=== PATIENT | male | born 1945 | race Caucasian/White ===

== ENCOUNTER 2016-12-06 09:16 | Inpatient (IN) | payer OTHER ==
[2016-11-12 15:24] VITALS: BMI 28.0
--- NOTE | 2016-11-12 16:06 | PAT Medication Instructions ---
Service Date Nov 12, 2016. Current Home Medication List Aspirin (Aspir-81), 1 TAB PO QAM Atorvastatin (Lipitor), 20 MG PO QAM Ibuprofen (Motrin), 800 MG PO QAM PRN for Pain Lisinopril/Hctz (Zestoretic 20MG/25MG), 1 TAB PO QAM Metoprolol Tartrate (Lopressor) (Lopressor), 50 MG PO HS Oxybutynin Chloride (Oxybutynin Chloride Er), 1 TAB PO HS Tamsulosin HCl (Tamsulosin HCl), 1 TAB PO HS [Oxybutynin] Medication Instructions For Your Scheduled Surgery Ibuprofen (Motrin), 800 MG PO QAM PRN for Pain (patient will check with surgeon for instructions) - Hold the following medications the morning of surgery: Lisinopril/Hctz (Zestoretic 20MG/25MG), 1 TAB PO QAM - Take the following medications the morning of surgery with a sip of water: Aspirin (Aspir-81), 1 TAB PO QAM - Take the following medications as scheduled the night before surgery: Oxybutynin Chloride (Oxybutynin Chloride Er), 1 TAB PO HS Tamsulosin HCl (Tamsulosin HCl), 1 TAB PO HS Metoprolol Tartrate (Lopressor) (Lopressor), 50 MG PO HS Atorvastatin (Lipitor), 20 MG PO QPM If you have any questions please call us at [phone] or [phone] ( [place]) or [phone]
[2016-11-12 16:26] LABS: URINE APPEARANCE CLEAR (CLEAR); URINE BILIRUBIN NEG (NEG); URINE COLOR YELLOW; URINE NITRITE NEG (NEG); URINE PH 7.5 (4.5-7.5); URINE SPECIFIC GRAVITY 1.008 (1.000-1.030); UROBILINOGEN NEG (NEG)
[2016-11-12 16:29] LABS: MANUAL MICROSCOPIC REQUIRED? NO; REVIEW REQ? NO
[2016-11-12 16:35] LABS: PROTHROMBIN TIME (PATIENT) 11.1 SECONDS (9.0-12.0)
[2016-11-12 16:38] LABS: BASO % 0.5 %; BASO ABS # 0.03 K/uL (0-0.2); COMPLETE YES; EOS % 3.5 %; HEMATOCRIT 38.5 % (42-52); IG% 0.2 %; LYMPH % 30.1 %; LYMPH ABS # 1.98 K/uL (1.2-3.4); MEAN CELL VOLUME 95.1 fL (80-100); MEAN CORPUSCULAR HEMOGLOBIN 33.8 pg (25-34); MEAN CORPUSCULAR HGB CONC 35.6 g/dl (32-36); MEAN PLATELET VOLUME 9.4 fL (7.4-10.4); MONO % 10.2 %; NEUT % 55.5 %; PLATELET COUNT 180 K/uL (130-400); RED BLOOD COUNT 4.05 M/uL (4.7-6.1); WHITE BLOOD COUNT 6.58 K/uL (4.8-10.8)
[2016-11-12 16:57] LABS: BUN/CREATININE RATIO 16.1 (10-20); CALCIUM 8.6 mg/dl (8.5-10.1); CREATININE 1.2 mg/dl (0.60-1.40); POTASSIUM 3.6 mmol/L (3.5-5.1)
--- NOTE | 2016-11-12 18:54 | DIAGNOSTIC IMAGING REPORT ---
CHEST PREADMISSION(PA/LAT) CLINICAL HISTORY: Preoperative chest COMPARISON STUDY: No previous studies for comparison. FINDINGS: The cardiac and mediastinal contours are normal. There is no evidence of focal pulmonary consolidation. There is no evidence of failure. No pleural effusions are visualized.[ IMPRESSION: No active disease in the chest. Electronically signed by: Waldemar Spence M.D. 11/12/2016 6:53 PM Dictated Date/Time: 11/12/2016 6:52 PM
[2016-11-13 10:05] LABS: ESTIMATED AVERAGE GLUCOSE 105 mg/dl; HA1C FLAG Normal (Normal)
--- NOTE | 2016-12-05 13:14 | HISTORY & PHYSICAL EXAMINATION ---
DATE OF ADMISSION: 12/06/2016 CHIEF COMPLAINT: Left hip pain. HISTORY OF PRESENT ILLNESS: The patient is a 71-year-old gentleman seen and evaluated for left hip pain with advanced osteoarthritis, previous corticosteroid injections as well as anti-inflammatory medications. Does have ongoing pain and disability and now desires left total hip arthroplasty. PAST MEDICAL HISTORY: Coronary artery disease, hypertension, hypercholesterolemia. PAST SURGICAL HISTORY: Orchiectomy, colonoscopy. MEDICATIONS: Aspirin 81 mg daily, atorvastatin 20 mg at bedtime, metoprolol tartrate 50 mg twice daily, tamsulosin 0.4 mg daily, lisinopril/HCTZ 20-25 daily, ibuprofen 800 mg p.r.n., oxybutynin chloride ER 5 mg daily. ALLERGIES: No known drug allergies. SOCIAL HISTORY: He states weekly alcohol use. REVIEW OF SYSTEMS: Noncontributory. PHYSICAL EXAMINATION: GENERAL: Well-nourished, well-developed elderly male who appears his stated age. HEAD, EYES, EARS, NOSE, AND THROAT: Normocephalic, atraumatic, extraocular movements intact, oropharynx pink and moist. NECK: Supple without adenopathy. LUNGS: Clear to auscultation bilaterally. HEART: Regular rate and rhythm. ABDOMEN: Soft, nontender, nondistended. EXTREMITIES: The upper extremity within normal limits. Left hip demonstrates limited range of motion. There is limitation of active and passive internal/external rotation with pain. X-RAYS: X-rays were reviewed. He has severe osteoarthritis about the left hip with complete loss of the joint space. There are large osteophytes about the acetabulum and femoral head. ASSESSMENT: Left hip degenerative joint disease. PLAN: Risks versus benefits were discussed. Consent was obtained. The patient's primary care physician is Dr. Brumfield. His manager club is [facility]. Will proceed with left total hip arthroplasty upon preop workup and medical clearance.
[2016-12-06] VITALS (8 sets, daily range): BP systolic 115–138; BP diastolic 66–81; PULSE 66–87; TEMP 36.3–36.7; O2SAT 96–99; Ht 170.2 cm; Wt 81.5 kg
[~2016-12-06] VITALS: Ht 170.2 cm; Wt 81.5 kg
[~2016-12-06 09:16] MED LIST: ACETAMINOPHEN 500 MG TAB PO SCH; ASPI-232 PO; ATOR-22 PO; BUPIVACAINE 0.5 % 5 MG/1 ML PF 10ML VIAL ONE; CEFAZOLIN 2000 MG/60 ML D5W 60 ML IV SCH; CeleBREX 200 MG CAP PO SCH; DEXAMETHASONE 4 MG TAB PO SCH; FAMOTIDINE 20 MG TAB PO SCH; FLM4 PO; GABAPENTIN 300 MG CAP PO SCH; IBUP-1428 PO; LACTATED RINGER'S 1000ML 1,000 ML IV SCH; LACTATED RINGER'S 1000ML IV SCH; LACTATED RINGER'S 500 ML IV SCH; LISI-788 PO; METO50TA16 PO; METOCLOPRAMIDE HCL 10 MG TAB PO SCH; OXYB5TAB PO; OXYBUTYNIN; ROPIVACAINE 5MG/ML 30 ML 150 MG, BUPIVACAINE/EPINEPHR 0.5% MPF 30 ML, KETOROLAC TROMETH... INFIL SCH; TRANEXAMIC ACID INJ 1,000 MG in SODIUM CHLORIDE 0.9% 100ML 100 ML IV SCH
[2016-12-06] MEDS ORDERED: MIDAZOLAM HCL 1 MG/ML 2ML VIAL ONE (09:32)
[2016-12-06] MEDS ORDERED: PROPOFOL IV EMULSION 10 MG/ML 20 ML VIAL IV ONE ×2 (09:32→11:50)
[2016-12-06] MEDS ORDERED: FENTANYL CITRATE INJ 50 MCG/1 ML 2 ML VIAL ONE (09:33)
--- NOTE | 2016-12-06 10:28 | History & Physical Bridge Note ---
H&P Re-Evaluation Bridge Note: I have examined the patient, reviewed the History & Physical and in the interval since the performance of the History & Physical I have noted the following changes of clinical significance: No changes noted
[2016-12-06] MEDS ORDERED: HYDROmorphone INJ 2 MG/ML SYR/VIAL IV PRN (10:45)
[2016-12-06] MEDS ORDERED: ONDANSETRON INJ 2 MG/ML 2 ML VIAL IV PRN ×2 (10:45→12:45)
[2016-12-06] MEDS ORDERED: ATROPINE SULFATE 0.1 MG/ML 5ML SYR IV PRN (10:45)
[2016-12-06] MEDS ORDERED: PHENYLEPHRINE 100MCG/ML 5ML SYR IV PRN (10:45)
[2016-12-06] MEDS ORDERED: EpHEDrine SULFATE INJ 50 MG/ML AMP IV PRN (10:45)
[2016-12-06] MEDS ORDERED: POVIDONE-IODINE OP SOLN 30 ML BTL ONE (10:56)
[2016-12-06] MEDS ORDERED: BACITRACIN 50000 UNIT VIAL ONE (10:57)
[2016-12-06] MEDS ORDERED: ONDANSETRON INJ 2 MG/ML 2 ML VIAL ONE (11:27)
[2016-12-06] MEDS ORDERED: EpHEDrine SULFATE 50MG/5ML SYR ONE (11:46)
[2016-12-06] MEDS ORDERED: PHENYLEPHRINE 100MCG/ML 5ML SYR ONE (11:49)
--- NOTE | 2016-12-06 12:09 | [facility] Post Operative Brief Note ---
Immediate Operative Summary Operative Date Dec 06, 2016. Pre-Operative Diagnosis Left hip degenerative joint disease. Post-Operative Diagnosis Left hip degenerative joint disease. Procedure(s) Performed Left Total Hip Arthroplasty, Uncemented Surgeon Dr. Robin Cunningham Entry Level Marketing Assistant Surgeon(s) Aníbal Mancia PA-C Estimated Blood Loss 100 mL Findings severe OA hip Specimens Specimen A. Left Femoral Head Disposition Recovery Room / PACU
[2016-12-06] MEDS ORDERED: ZOLPIDEM TARTRATE 5 MG TAB PO PRN (12:45)
[2016-12-06] MEDS ORDERED: MoRPHine SULFATE 2 MG/ML CARP IV PRN ×2 (12:45→14:00)
[2016-12-06] MEDS ORDERED: ALUMINUM/MAGNESIUM/SIMETH (MAALOX MAX) 30 ML UDC PO PRN (12:45)
[2016-12-06] MEDS ORDERED: DiphenhydrAMINE HCL 50 MG/ML VIAL IV PRN (12:45)
[2016-12-06] MEDS ORDERED: MAGNESIUM HYDROXIDE SUSP 30 ML UDC PO PRN (12:45)
[2016-12-06] MEDS ORDERED: BISACODYL 10 MG SUPP PR PRN (12:45)
--- NOTE | 2016-12-06 13:15 | DIAGNOSTIC IMAGING REPORT ---
LEFT PELVIS/UNILATERAL HIP 1 VIEW CLINICAL HISTORY: Left hip arthroplasty. COMPARISON: None FINDINGS: Alignment of the total left hip arthroplasty is anatomic. There is no fracture or unexpected radiopaque foreign body. Surgical drains and skin genoveva are present. Acetabular screw is present. There is moderate arthritis of the right hip. IMPRESSION: Expected findings following total left hip arthroplasty. Electronically signed by: Buck Castillo M.D. 12/06/2016 1:13 PM Dictated Date/Time: 12/06/2016 1:12 PM
--- NOTE | 2016-12-06 13:37 | Anesthesiology Progress Note ---
Anesthesia Post Op Note Date & Time Dec 06, 2016 at 13:37 Vital Signs Pain Intensity: 0 Vital Signs Past 12 Hours Date Time Temp Pulse Resp B/P Pulse Ox O2 Delivery O2 Flow Rate FiO2 12/06/16 13:20 71 2 118/66 99 12/06/16 13:20 71 2 12/06/16 13:19 36.9 18 118/66 96 Nasal Cannula 2 12/06/16 13:15 69 0 12/06/16 13:15 70 0 121/67 99 12/06/16 13:10 71 2 12/06/16 13:10 70 2 121/69 99 12/06/16 13:09 69 11 99 12/06/16 13:09 69 11 12/06/16 13:05 120/64 12/06/16 13:04 74 14 12/06/16 13:04 74 14 116/58 99 12/06/16 13:00 117/65 12/06/16 12:59 72 19 100 12/06/16 12:59 72 19 12/06/16 12:55 119/61 12/06/16 12:54 67 14 100 12/06/16 12:54 65 14 12/06/16 12:50 117/67 12/06/16 12:49 71 17 100 12/06/16 12:49 70 17 12/06/16 12:45 119/61 12/06/16 12:44 84 14 100 12/06/16 12:44 83 14 12/06/16 12:40 116/66 12/06/16 12:39 69 17 12/06/16 12:39 69 17 100 12/06/16 12:35 103/59 12/06/16 12:34 36.3 75 20 105/62 100 Mask 10 12/06/16 12:34 75 17 105/62 12/06/16 12:34 17 12/06/16 09:43 36.7 66 18 131/81 96 Room Air Notes Mental Status: alert / awake / arousable, participated in evaluation Pt Amnestic to Procedure: Yes Nausea / Vomiting: adequately controlled Pain: adequately controlled Airway Patency, RR, SpO2: stable & adequate BP & HR: stable & adequate Hydration State: stable & adequate Anesthetic Complications: no major complications apparent
[2016-12-06] MEDS ORDERED: MoRPHine SULFATE 10 MG/ML CARP/VIAL IV PRN (14:00)
[2016-12-06] MEDS ORDERED: MoRPHine SULFATE 4 MG/ML 1 ML CARP\\VIAL IV PRN (14:00)
[2016-12-06] MEDS: D5W AND 1/2NSS + 20MEQ KCL 1,000 ML IV SCH ×2 (14:40→23:47)
[2016-12-06] MEDS: OXYCODONE HCL IR 5 MG TAB (IMMEDIATE RELEASE) PO PRN ×2 (18:18→23:48)
[2016-12-06] MEDS: FERROUS GLUCONATE 324 MG TAB PO SCH (18:18)
[2016-12-06] MEDS: CEFAZOLIN IV 2,000 MG in DEXTROSE 5% 50ML 50 ML IV SCH (19:56)
[2016-12-06] MEDS: OXYBUTYNIN CHLORIDE 5 MG TABCR PO SCH (20:32)
[2016-12-06] MEDS: SENNA 8.6 MG TAB PO SCH (20:32)
[2016-12-06] MEDS: DOCUSATE SODIUM 100 MG CAP PO SCH (20:32)
[2016-12-06] MEDS: ATORVASTATIN 20 MG TAB PO SCH (20:32)
[2016-12-06] MEDS: METOPROLOL TARTRATE 50 MG TAB PO SCH (20:32)
[2016-12-06] MEDS: TAMSULOSIN HCL 0.4 MG CAP PO SCH (20:32)
[2016-12-06] MEDS: OXYCODONE HCL 10 MG TABCR (OXYCONTIN) PO SCH (20:33)
[2016-12-06] MEDS: ASPIRIN 81 MG ECTAB PO SCH (21:38)
[2016-12-06] MEDS: ACETAMINOPHEN 500 MG TAB PO SCH (21:38)
[2016-12-07 03:29] VITALS: BP 134/79; PULSE 67; TEMP 36.5; O2SAT 97
[2016-12-07] MEDS: CEFAZOLIN IV 2,000 MG in DEXTROSE 5% 50ML 50 ML IV SCH (04:09)
[2016-12-07 05:48] LABS: BASO % 0.1 %; BASO ABS # 0.01 K/uL (0-0.2); COMPLETE YES; HEMATOCRIT 32.2 % (42-52); IG% 0.2 %; LYMPH % 6.1 %; LYMPH ABS # 0.88 K/uL (1.2-3.4); MEAN CELL VOLUME 91.2 fL (80-100); MEAN CORPUSCULAR HEMOGLOBIN 33.4 pg (25-34); MEAN CORPUSCULAR HGB CONC 36.6 g/dl (32-36); MEAN PLATELET VOLUME 8.5 fL (7.4-10.4); MONO % 5.5 %; NEUT % 88.1 %; PLATELET COUNT 151 K/uL (130-400); RED BLOOD COUNT 3.53 M/uL (4.7-6.1); WHITE BLOOD COUNT 14.31 K/uL (4.8-10.8)
[2016-12-07] MEDS: ACETAMINOPHEN 500 MG TAB PO SCH ×3 (05:54→21:47)
[2016-12-07 06:27] LABS: BUN/CREATININE RATIO 13.9 (10-20); CALCIUM 7.8 mg/dl (8.5-10.1); CREATININE 1.3 mg/dl (0.60-1.40)
[2016-12-07 06:56] VITALS: BP 124/71; PULSE 65; TEMP 36.9; O2SAT 97
[2016-12-07] MEDS: OXYCODONE HCL IR 5 MG TAB (IMMEDIATE RELEASE) PO PRN ×3 (07:18→16:42)
--- NOTE | 2016-12-07 08:33 | Orthopedic Progress Note ---
Orthopedic Progress Note Date of Service Dec 07, 2016. Subjective Post OP Day: 1 Reports: feeling well, Denies: SOB, calf pain, chest pain, complaints, nausea / vomiting Objective calves soft nontender, N/V intact, hip located, dressing C/D/I, A&O x3, toes mobile Date Time Temp Pulse Resp B/P Pulse Ox O2 Delivery O2 Flow Rate FiO2 12/07/16 07:20 Room Air 12/07/16 06:56 36.9 65 17 124/71 97 Room Air 12/07/16 03:29 36.5 67 18 134/79 97 Room Air 12/06/16 23:17 36.5 72 16 132/76 98 Room Air 12/06/16 20:00 Nasal Cannula 2.0 12/06/16 18:58 36.4 86 16 138/69 97 Nasal Cannula 2.0 12/06/16 16:50 72 16 128/67 98 Nasal Cannula 2.0 12/06/16 15:34 36.3 79 16 118/66 99 Nasal Cannula 12/06/16 14:41 87 123/74 99 Nasal Cannula 12/06/16 14:08 71 16 115/66 99 Nasal Cannula 2.0 12/06/16 13:35 Nasal Cannula 2.0 12/06/16 13:35 36.4 79 12 118/68 98 Nasal Cannula 2.0 12/06/16 13:35 Nasal Cannula 2.0 12/06/16 13:20 71 2 118/66 99 12/06/16 13:20 71 2 12/06/16 13:19 36.9 18 118/66 96 Nasal Cannula 2 12/06/16 13:15 69 0 12/06/16 13:15 70 0 121/67 99 12/06/16 13:10 71 2 12/06/16 13:10 70 2 121/69 99 12/06/16 13:09 69 11 99 12/06/16 13:09 69 11 12/06/16 13:05 120/64 12/06/16 13:04 74 14 12/06/16 13:04 74 14 116/58 99 12/06/16 13:00 117/65 12/06/16 12:59 72 19 100 12/06/16 12:59 72 19 12/06/16 12:55 119/61 12/06/16 12:54 67 14 100 12/06/16 12:54 65 14 12/06/16 12:50 117/67 12/06/16 12:49 71 17 100 12/06/16 12:49 70 17 12/06/16 12:45 119/61 12/06/16 12:44 84 14 100 12/06/16 12:44 83 14 12/06/16 12:40 116/66 12/06/16 12:39 69 17 12/06/16 12:39 69 17 100 12/06/16 12:35 103/59 12/06/16 12:34 36.3 75 20 105/62 100 Mask 10 12/06/16 12:34 75 17 105/62 12/06/16 12:34 17 12/06/16 09:43 36.7 66 18 131/81 96 Room Air Laboratory Results 24 Hours: Test 12/07/16 05:42 White Blood Count 14.31 K/uL Red Blood Count 3.53 M/uL Hemoglobin 11.8 g/dL Hematocrit 32.2 % Mean Corpuscular Volume 91.2 fL Mean Corpuscular Hemoglobin 33.4 pg Mean Corpuscular Hemoglobin Concent 36.6 g/dl Platelet Count 151 K/uL Mean Platelet Volume 8.5 fL Neutrophils (%) (Auto) 88.1 % Lymphocytes (%) (Auto) 6.1 % Monocytes (%) (Auto) 5.5 % Eosinophils (%) (Auto) 0.0 % Basophils (%) (Auto) 0.1 % Neutrophils # (Auto) 12.61 K/uL Lymphocytes # (Auto) 0.88 K/uL Monocytes # (Auto) 0.78 K/uL Eosinophils # (Auto) 0.00 K/uL Basophils # (Auto) 0.01 K/uL Assessment & Plan Assessment: POD 1 s/p Left JAIRO CAD HTN Plan: PT/OT Pt planning on doing his own PT at home pending on how he does here. Inhouse Planning Pain Management: Morphine, PO Tylenol, Oxy IR DVT Prophylaxis: TEDs, SCDs, ASA Discharge Planning Discharge Planning: home Pain Management: PO Tylenol, Oxy IR DVT Prophylaxis: TEDs, ASA
--- NOTE | 2016-12-07 08:35 | Discharge Instructions ---
Discharge Instructions Admission Reason for Admission: Left Hip Osteoarthritis Discharge Discharge Diagnosis / Problem: Left Hip Djd Discharge Goals Goal(s): Decrease discomfort, Improve function Activity Recommendations Activity Limitations: per Instructions/Follow-up section Weightbearing Status: Left weightbearing (as tolerated) . Instructions / Follow-Up Instructions / Follow-Up ACTIVITY RECOMMENDATIONS: SELF CARE INSTRUCTIONS AFTER TOTAL HIP REPLACEMENT Until the incision and soft tissues around your hip have healed, there is a possibility that the hip prosthesis could dislocate. A. Observe the following precautions to prevent dislocation: 1. Don't bend your hip greater than 90 degrees. 2. Avoid crossing your legs or ankles while standing or lying. 3. Sit with your feet placed 6 inches apart. 4. When sitting, keep your knees below your hips. Sit on a firm surface, avoid deep, soft chairs and couches. Use an elevated toilet seat in the bathroom. 5. Don't bend over at the waist. Use a long handled shoehorn and a sock aid to help you put on your shoes and socks. A aboriginal liaison officer can help you filler picker objects that are too high or too low to reach. 6. Keep car riding to a minimum for at least one month after surgery. B. Your balance may be shaky for a while. Use crutches or a walker until directed by your doctor. C. Use hand rails when walking on stairs. D. Wear low heeled shoes with non-slip soles. E. Be sure that your floors are free of things that could trip you - throw rugs , electrical cords, small objects. Avoid wet and waxed floors, especially with crutches and canes. F. Try to walk several times a day with rest periods between. G. Continue with all the exercises taught to you in the hospital. Again, make walking a part of your daily routine. SPECIAL CARE INSTRUCTIONS: VERY IMPORTANT TO READ AND REVIEW A. You may still be at risk for phlebitis and blood clots. 1. Wear surgical stockings (EMMANUEL hose) for 2 weeks after surgery to improve circulation and reduce swelling. 2. Take Aspirin 81mg twice daily for 4 weeks or as directed by your doctor. This is your blood thinner. 3. High risk patients may be prescribed a stronger blood thinner if necessary. 4. If you are on Coumadin normally, your family doctor/court security officer should monitor your blood work. Expect a phone call the day of or the day after bloodwork is drawn to adjust your dosage. B. You must take antibiotics before having dental work, bladder, bowel and other surgery. Your doctor will provide you with a permanent card to carry describing precautions. C. Call [facility] if you have a fever, redness or swelling around the incision, cloudy drainage from incision, or sudden increase in pain in your hip, not relieved by your regular pain medication. D. Please call the office at if you have any concerns or questions about your operation or recovery. * YOU MAY SHOWER, NO TUB BATHS UNTIL CLEARED BY YOUR DOCTOR. * WEAR EMMANUEL HOSE 20 HOURS PER DAY FOR 2 WEEKS. * YOU SHOULD USE A WALKER OR CRUTCHES FOR 2-4 WEEKS. THIS WILL HELP PREVENT STRAIN ON YOUR HIP MUSCLE AND ALLOW IT TO HEAL PROPERLY. YOU MAY WEAN TO A CANE TOLERATED. * MOST PATIENTS WILL HAVE HOME NURSING FOR THERAPY. IF YOU DECIDE TO DO OUTPATIENT PHYSICAL THERAPY, PLEASE SCHEDULE THIS 3 TIMES PER WEEK. * Silverlon- This is a large adhesive bandage that contains silver ions. This helps your incision heal by fighting off bacteria and protecting it from the outside environment. You are permitted to shower with this dressing. This will remain on your incision for 7 days and then should be removed. Some visible blood or drainage through the dressing window is normal. If there is significant drainage or leaking noted before the 7 days notify your doctor's office immediately. Once removed, keep incision clean and dry. If there is any drainage or redness noted, please call your surgeon. . FOLLOW UP VISIT: If appointment is not already scheduled: Please call [facility] to make a follow-up appointment for 2 weeks after your surgery at . Current Hospital Diet Patient's current hospital diet: Regular Diet Discharge Diet Recommended Diet: Regular Diet Procedures Procedures Performed: Left Total Hip Arthroplasty, Uncemented Pending Studies Studies pending at discharge: no Laboratory Results Hemoglobin A1c Test 11/12/16 16:11 Range/Units Estimated Average Glucose 105 mg/dl Hemoglobin A1c 5.3 4.5-5.6 % Medical Emergencies . Who to Call and When: Medical Emergencies: If at any time you feel your situation is an emergency, please call 911 immediately. . Non-Emergent Contact Non-Emergency issues call your: Surgeon Call Non-Emergent contact if: temperature is above 101.5, your pain is not controlled, your pain is worsening, wound has increased drainage, wound has increased redness . "Provider Documentation" section prepared by Aníbal Mancia. VTE Core Measure Inpt VTE Proph given/why not?: Other Anticoagulation, T.E.D. Stockings, SCD's [place] Drug Monitoring Program Search Results: patient reviewed within database, no issues identified
[2016-12-07] MEDS: MULTIVITAMIN TAB PO SCH (08:49)
[2016-12-07] MEDS: ASPIRIN 81 MG ECTAB PO SCH ×2 (08:49→21:17)
[2016-12-07] MEDS: OXYCODONE HCL 10 MG TABCR (OXYCONTIN) PO SCH ×2 (08:49→21:20)
[2016-12-07] MEDS: FERROUS GLUCONATE 324 MG TAB PO SCH ×3 (08:49→18:12)
[2016-12-07] MEDS: PANTOprazole SOD 40 MG TAB PO SCH (08:50)
[2016-12-07] MEDS: LISINOPRIL/HCTZ 20/25MG TAB PO SCH (08:50)
[2016-12-07] MEDS: DOCUSATE SODIUM 100 MG CAP PO SCH ×2 (08:50→21:17)
[2016-12-07] MEDS: D5W AND 1/2NSS + 20MEQ KCL 1,000 ML IV SCH (08:51)
[2016-12-07 11:39] VITALS: BP 131/70; PULSE 65; TEMP 36.5; O2SAT 99
--- NOTE | 2016-12-07 13:35 | Anesthesiology Progress Note ---
Anesthesia Post Op Note Date & Time Dec 07, 2016 at 08:00 Vital Signs Vital Signs Past 12 Hours Date Time Temp Pulse Resp B/P Pulse Ox O2 Delivery O2 Flow Rate FiO2 12/07/16 11:39 36.5 65 17 131/70 99 Room Air 12/07/16 07:20 Room Air 12/07/16 06:56 36.9 65 17 124/71 97 Room Air 12/07/16 03:29 36.5 67 18 134/79 97 Room Air Notes Mental Status: alert / awake / arousable, participated in evaluation Pt Amnestic to Procedure: Yes Nausea / Vomiting: adequately controlled Pain: adequately controlled Airway Patency, RR, SpO2: stable & adequate BP & HR: stable & adequate Hydration State: stable & adequate Neuraxial Anesthesia: sensory block resolved Anesthetic Complications: no major complications apparent
[2016-12-07 15:15] VITALS: BP 121/73; PULSE 61; TEMP 36.4; O2SAT 98
[2016-12-07] MEDS: ATORVASTATIN 20 MG TAB PO SCH (21:17)
[2016-12-07] MEDS: TAMSULOSIN HCL 0.4 MG CAP PO SCH (21:17)
[2016-12-07] MEDS: OXYBUTYNIN CHLORIDE 5 MG TABCR PO SCH (21:17)
[2016-12-07 21:18] VITALS: BP 123/72; PULSE 71
[2016-12-07] MEDS: METOPROLOL TARTRATE 50 MG TAB PO SCH (21:18)
[2016-12-07] MEDS: SENNA 8.6 MG TAB PO SCH (21:21)
[2016-12-07 23:44] VITALS: BP 130/78; PULSE 65; TEMP 36.9; O2SAT 96
[2016-12-08] MEDS: ACETAMINOPHEN 500 MG TAB PO SCH (06:03)
[2016-12-08 06:42] VITALS: BP 143/83; PULSE 70; TEMP 36.6; O2SAT 96
[2016-12-08] MEDS: MULTIVITAMIN TAB PO SCH (07:34)
[2016-12-08] MEDS: LISINOPRIL/HCTZ 20/25MG TAB PO SCH (07:34)
[2016-12-08] MEDS: ASPIRIN 81 MG ECTAB PO SCH (07:34)
[2016-12-08] MEDS: FERROUS GLUCONATE 324 MG TAB PO SCH (07:34)
[2016-12-08] MEDS: DOCUSATE SODIUM 100 MG CAP PO SCH (07:34)
[2016-12-08] MEDS: OXYCODONE HCL 10 MG TABCR (OXYCONTIN) PO SCH (07:35)
[2016-12-08] MEDS: PANTOprazole SOD 40 MG TAB PO SCH (07:35)
--- NOTE | 2016-12-08 08:43 | Orthopedic Progress Note ---
Orthopedic Progress Note Date of Service Dec 08, 2016. Subjective Post OP Day: 2 Reports: feeling well, pain controlled w PO medications, Denies: SOB, calf pain , chest pain, light headedness, nausea / vomiting Objective calves soft nontender, N/V intact, capillary refill less than 2 sec., dressing C /D/I (silverlon), A&O x3, toes mobile Date Time Temp Pulse Resp B/P Pulse Ox O2 Delivery O2 Flow Rate FiO2 12/08/16 07:10 Room Air 12/08/16 06:42 36.6 70 16 143/83 96 Room Air 12/08/16 00:30 Room Air 12/07/16 23:44 36.9 65 16 130/78 96 Room Air 12/07/16 21:18 71 123/72 12/07/16 16:00 Room Air 12/07/16 15:15 36.4 61 18 121/73 98 Room Air 12/07/16 11:39 36.5 65 17 131/70 99 Room Air Assessment & Plan Assessment: POD 2 s/p Left JAIRO CAD HTN Plan: PT/OT Pt planning to do HH. plan for discharge today Inhouse Planning Pain Management: PO Tylenol, Oxy IR DVT Prophylaxis: TEDs, SCDs, ASA Discharge Planning Discharge Planning: home Pain Management: PO Tylenol, Oxy IR DVT Prophylaxis: TEDs, ASA Therapy: Physical Therapy
[2016-12-08] MEDS ORDERED: ACET-1138 PO (08:45)
[2016-12-08] MEDS ORDERED: ONDA8TAB6 PO (08:45)
[2016-12-08] MEDS ORDERED: OXYSR10 PO (08:45)
[2016-12-08] MEDS ORDERED: RXC5 PO (08:45)
[2016-12-08] MEDS ORDERED: ASPEC81 PO (08:45)
[2016-12-08 09:45] VITALS: BP 143/83; PULSE 70; TEMP 36.6; O2SAT 96
--- NOTE | 2016-12-11 22:16 | DISCHARGE SUMMARY ---
DISCHARGE DIAGNOSIS: Degenerative joint disease, left hip. SECONDARY DIAGNOSES: Coronary artery disease, hypertension, hypercholesterolemia. CONSULTS: None. COMPLICATIONS: None. PROCEDURES: Left total hip arthroplasty performed by Dr. Cunningham on 12/06/2016. BRIEF HISTORY: As dictated in the history and physical. HOSPITAL SUMMARY: The patient was admitted on the above-noted date and had the above-noted surgery performed which he tolerated well. On his first postoperative day, he was feeling well and had no complaints. Calves were soft and nontender. Neurovascularly intact. Hip was located. Dressings were clean, dry and intact. Toes were mobile. Vital signs were stable. He was afebrile and hemoglobin was 11.8. He was started on physical therapy protocol and continued on DVT prophylaxis and pain management. Plans were for him to go home and do his own physical therapy exercises. By his second postoperative day, he was feeling well and pain was controlled. Calves were soft and nontender, neurovascularly intact. Dressings were clean, dry and intact, toes were mobile, and he was progressing well with his PT. Vital signs were stable and it was felt that he could be discharged to home on 12/08/2016. For further review, please see chart. LABORATORY AND X-RAY DATA: As per chart. DISCHARGE INSTRUCTIONS: The patient was discharged to home in satisfactory condition on 12/08/2016. DIET: Regular. ACTIVITY: Weightbearing as tolerated left lower extremity. Follow JAIRO instruction sheets and special care instructions as noted. Follow up with Dr. Cunningham in 2 weeks. The patient to call for appointment if one has not been made for you. DISCHARGE MEDICATIONS: Acetaminophen 1000 mg p.o. q. 8 hours, aspirin 81 mg p.o. b.i.d., Zofran 8 mg p.o. q. 8 hours, OxyContin 10 mg p.o. q. 12 hours, oxycodone 5-10 mg p.o. q. 4 hours p.r.n., atorvastatin 20 mg p.o. q.p.m., Zestoretic 20/25 one tab p.o. q.a.m., metoprolol 50 mg p.o. at bedtime, oxybutynin chloride 5 mg 1 tab p.o. at bedtime, tamsulosin 0.4 mg p.o. at bedtime. Stop taking ibuprofen and resume taking your once daily dose of aspirin once you stop taking aspirin b.i.d. in 30 days.
--- NOTE | 2016-12-17 10:29 | OPERATIVE REPORT ---
DATE OF OPERATION: 12/06/2016 PREOPERATIVE DIAGNOSIS: Osteoarthritis, right hip. POSTOPERATIVE DIAGNOSIS: Osteoarthritis, right hip. PROCEDURE: Right connective total hip arthroplasty. SURGEON: Dr. Cunningham. GROCERY CLERK STOCKING: Aníbal Mancia PA-C. ANESTHESIA: Spinal. COMPLICATIONS: None. PROCEDURE: Following induction of adequate spinal anesthesia, the patient was placed in right lateral decubitus position and left Nichole-Langenbeck incision was made. Subcutaneous tissue was sharply dissected. Electrocautery used for hemostasis. The fascia was incised throughout the length of the wound and a hook scissor placed beneath the short external rotators. The pyriformis was tagged with #1 Vicryl. The short external rotators were divided from the posterior aspect of the femur using electrocautery. These were swept posteriorly. A T-capsulotomy incision was made and the hip was dislocated using a combination of flexion, adduction, and internal rotation. Exposure of the femoral neck with old-style Hohmann and a blunt Hohmann was carried out and a femoral rasp was utilized as a guide for making the appropriate level femoral neck cut. This bone fragment was removed and reserved on the back table. Next, attention was turned to the acetabulum where bone hook was used to retract the femur while the offset retractors were placed anterior and posteriorly. A double-angled Hohmann was placed in superior and anterior position exposing the acetabulum nicely. Acetabular labrum as well as posterior capsule elements were removed using a long knife and a long pickup. Fovea centralis was cleared of all soft tissue. Sequential reamings were carried up to a 52 and decision was made to proceed with impaction of a 52 trabecular metal cup. This was impacted and held using a single 35 mm bone screw. The acetabular liner was placed with 15 of elevated posterior wall in the superior and posterior position. Next, attention was turned to the femoral portion of the case where a Bovie and pickup was used to further clear short external rotators from their insertion on the femur. Box osteotome was used to gain access to the femoral canal and the T-handled rasp and a rattail rasp were used to further open and lateral the canal. Sequentially raspings were carried up to a ____ which gave good fit and fill of the proximal femur. A trial reduction was carried out and 4 offset femoral neck component was chosen as the size to be used. A -5 mm ceramic femoral head was impacted into position, +0 head was utilized. The trial reduction was stable in all degrees of rotation with no [id number] impingement. The hip was dislocated. The trial components were removed and the final femoral stem, neck, and femoral head combination were assembled on the back table and impacted into position. Hip was relocated. Range of motion checked once again successful and the wound was irrigated. The pyriformis repaired to the greater trochanter using #1 Vicryl [id number] suture. A Hemovac drain was placed and the fascia was closed using #1 Vicryl, subcutaneous tissue was closed using 0 Dexon, and skin was closed with genoveva. Sterile dressing of Adaptic, 4 x 4's, ABDs, and foam tape was applied. The patient tolerated the procedure well. Recovery room stable. Due to the complex nature of the procedure, the entire surgery was performed with the operational assistance of Aníbal Mancia PA-C. The assistant elementary teacher, under direct supervision, was involved in the actual performance of all aspects of the surgical procedure including hemostasis, tissue retraction and incision, instrument management, patient positioning, and wound closure. I attest to the content of the Intraoperative Record and any orders documented therein. Any exceptio ns are noted below.
== END 2016-12-08 13:25 | disposition home health service (06) | DRG 470 ==
LOC: ENRESERVTM → ENRESERVDT → C.ACU 09:16 → C.3E 10:31
PROC: 0SRB04A Replacement of Left Hip Joint with Ceramic on Polyethylene Synthetic Substitute, Uncemented, Open Approach (ICD-10-PCS; principal; 2016-12-06 11:15)
DX: M16.12 Unilateral primary osteoarthritis, left hip (principal); B40.0 Acute pulmonary blastomycosis; E78.00 Pure hypercholesterolemia, unspecified; I25.10 Atherosclerotic heart disease of native coronary artery without angina pectoris; I10 Essential (primary) hypertension; Z79.899 Other long term (current) drug therapy; Z79.82 Long term (current) use of aspirin; Z79.1 Long term (current) use of non-steroidal anti-inflammatories (NSAID)